=== PATIENT | male | born 1985 | race Caucasian/White ===

== ENCOUNTER 2017-05-14 00:06 | Emergency (ER) | payer BC, OTHER ==
[2017-05-14] MEDS ORDERED: Ibuprofen 800 MG Tab PO ONE (00:39)
[2017-05-14] MEDS ORDERED: Lidocaine 1% 20 ML MDV INJECT ONE (00:39)
[2017-05-14] MEDS ORDERED: Bacitracin Oint 1 GM U/D Packet TOP ONE (00:45)
--- NOTE | 2017-05-14 00:46 | EDM.PDOC ---
ED HPI GENERAL MEDICAL PROBLEM - General Chief Complaint: Upper Extremity Injury/Pain Stated Complaint: INJURY TO RIGHT HAND Time Seen by Provider: 05/14/17 00:36 Source of Information: Reports: Patient, Other (Friend) History Limitations: Reports: No Limitations - History of Present Illness INITIAL COMMENTS - FREE TEXT/NARRATIVE: HISTORY AND PHYSICAL: History of present illness: [32-year-old male status post laceration right long finger prior to arrival. Patient was drinking he went to punch a punching bag in a bar when he hit the wooden base that was mounted on causing her to have centimeter laceration to his right long finger is able to use and range of motion finger normally and states his sensation is normal distally. No other complaints.] Review of systems: As per history of present illness and below otherwise all systems reviewed and negative. Past medical history: As per history of present illness and as reviewed below otherwise noncontributory. Surgical history: As per history of present illness and as reviewed below otherwise noncontributory. Social history: No reported history of drug or alcohol abuse. Family history: As per history of present illness and as reviewed below otherwise noncontributory. Physical exam: Patient mildly intoxicated but alert communicative and cooperative. 2 and half centimeter laceration dorsum right long finger. Normal strength and range of motion in flexion and extension. No evidence of tendon involvement. No gross contamination. Bleeding controlled. HEENT: Normocephalic, atraumatic, pupils normal and symmetrical, supple neck, no meningismus, normal color Lungs: Normal and symmetrical chest wall excursion bilateral with no tachypnea or increased work of breathing, grossly normal chest exam Heart: No tachycardia in triage Abdomen: Normal-appearing, nondistended, no visible mass or asymmetry Pelvis: Normal-appearing Genitourinary: Deferred Rectal exam: Deferred Extremities: Atraumatic, normal use and range of motion, no visible evidence of gross neurovascular compromise Neuro: Awake, alert, oriented. Normal and appropriate mental status. Cranial nerves grossly unremarkable. Motor function normal. Nonfocal neurologic exam. Diagnostics: [] Therapeutics: [Laceration repair by ER Qian Patient's wound anesthetized with 1% lidocaine and irrigated extensively with tap water.] 6 interrupted 5-0 Prolene sutures placed urine Qian with good approximation and hemostasis. Patient tolerated well no palpitations Impression: [] Plan: [Status post unconjugated laceration no clinical evidence of fracture or tendon injury. Wound repair performed by me. No further workup or treatment indicated patient agrees with outpatient follow-up and strict return precautions given] Definitive disposition and diagnosis as appropriate pending reevaluation and review of above. - Related Data Allergies Allergy/AdvReac Type Severity Reaction Status Date / Time No Known Allergies Allergy Verified 05/19/17 20:18 Home Meds: Home Meds Hydrocodone/Acetaminophen [Hydrocodon-Acetaminoph 7.5-325] 1 tab PO Q8HR [History] Sulfamethoxazole/Trimethoprim [Bactrim Ds Tablet] 1 each PO BID 05/19/17 [ History] Review of Systems - Review of Systems Review Of Systems: See Below (History of present illness) ED EXAM, GENERAL - Physical Exam Exam: See Below (History of present illness) Course - Vital Signs Last Recorded V/S: Last Vital Signs Temp 36.6 C 05/14/17 00:19 Pulse 92 05/14/17 00:19 Resp 20 05/14/17 00:19 BP 125/87 05/14/17 00:19 Pulse Ox 95 05/14/17 00:19 - Orders/Labs/Meds Meds: Medications Discontinued Medications Generic Name Dose Route Start Last Admin Trade Name Freq PRN Reason Stop Dose Admin Bacitracin 1 dose 05/14/17 00:45 Bacitracin Oint 1 Gm TOP 05/14/17 00:46 ONETIME ONE Ibuprofen 800 mg 05/14/17 00:39 Motrin PO 05/14/17 00:40 ONETIME ONE Lidocaine HCl 20 ml 05/14/17 00:39 Xylocaine 1% INJECT 05/14/17 00:40 ONETIME ONE Departure - Departure Time of Disposition: 00:20 Disposition: Home, Self-Care 01 Condition: Good Clinical Impression: Laceration of right hand - Discharge Information Referrals: PCP,None [Primary Care Provider] - Forms: ED Department Discharge Additional Instructions: Your laceration has been repaired with sutures today. Follow-up in your with your doctor in 2 days for a wound check and in 10 days for suture removal. You can return to the emergency department for suture removal in 10 days and you will not be charged for another visit. It is considered part of your care to remove the sutures. It on any signs of fracture or tendon rupture. Use ice and take ibuprofen every 6 hours as needed for pain
[2017-05-14 00:47] VITALS: BP 125/87
== END 2017-05-14 00:48 | disposition home or self-care (01) ==
LOC: MW.ED 00:06
DX: S61.212A Laceration without foreign body of right middle finger without damage to nail, initial encounter (principal); W22.8XXA Striking against or struck by other objects, initial encounter; Y92.89 Other specified places as the place of occurrence of the external cause
CPT/HCPCS: 12002; 99282; 99283

== ENCOUNTER 2017-05-18 19:49 | Emergency (ER) | payer BC ==
[2017-05-18] MEDS ORDERED: Acetaminophen/HYDROcodone 325-7.5 MG Tab PO ONE (20:17)
--- NOTE | 2017-05-18 20:18 | EDM.PDOC ---
ED HPI GENERAL MEDICAL PROBLEM - General Chief Complaint: Skin Complaint Stated Complaint: RIGHT HAND PAIN Time Seen by Provider: 05/18/17 19:51 - History of Present Illness INITIAL COMMENTS - FREE TEXT/NARRATIVE: HISTORY AND PHYSICAL: History of present illness: The patient is a 32-year-old male who presents with persistent pain swelling and possible infection to his right hand after sustaining an injury 4 days ago. According to the patient he had blunt trauma to the hand which he says occurred when some engine parts fell onto his hand. The patient was seen here in the emergency department on May 14 and the chart has been reviewed by me. On that visit the triage note states that the injury occurred upon touching a punching bag MR and the patient refused treatment of the laceration repair and refused all interventions and signed AMA. The patient recalls that he did drink that evening but didn't specifically relate these events to me. The patient says that since the injury he has been cleaning the wound with diluted peroxide and wound has been healing but the surrounding area of the soft tissue is erythematous and swollen and there is pain with moving of the index finger. He has no streaking up his arm and he has no wrist forearm elbow or upper arm pain or swelling. He has no systemic complaints of fever chills chest pain or shortness of breath. He's been eating and drinking normally. Review of systems: As per history of present illness and below otherwise all systems reviewed and negative. Past medical history: As per history of present illness and as reviewed below otherwise noncontributory. Surgical history: As per history of present illness and as reviewed below otherwise noncontributory. Social history: No reported history of drug or alcohol abuse. Family history: As per history of present illness and as reviewed below otherwise noncontributory. Physical exam: Gen.: Well-developed well-nourished man who is nontoxic and vital signs of been reviewed by me. HEENT: Atraumatic, normocephalic, negative for conjunctival pallor or scleral icterus, mucous membranes moist, throat clear, neck supple, nontender, trachea midline. Lungs: Clear to auscultation, breath sounds equal bilaterally, chest nontender. Heart: S1S2, regular rate and rhythm no overt murmurs Abdomen: Soft, nondistended, nontender. NABS. Pelvis: Deferred Skin: Normal turgor no evidence of any overt rashes or lesions Genitourinary: Deferred. Rectal: Deferred. Extremities: Atraumatic with full range of motion of all extremities with the exception of the right hand. On the dorsal aspect of the right hand near the second MCP there is a 3 cm partially healed open wound without any drainage fluctuance or crepitus. The edges are jagged he an irregular and the surrounding tissue is somewhat macerated. The surrounding soft tissue is swollen but is not warm. The erythema in this area is ill-defined and there is no streaking up the hand or arm. There are no proximal lymph nodes appreciated. There is no palpable bony deformities but there is diffuse tenderness at the first metacarpal and MCP area. On the palmar surface there is some soft tissue swelling in the corresponding area but there are no open wounds appreciated. The patient is difficulty with flexion and extension at the index finger due to discomfort but can tolerate passive range of motion. All other extremities are without injuries and the legs are, negative for cords or calf pain. Neurovascular unremarkable. Neuro: Awake, alert, oriented. Cranial nerves II through XII unremarkable. Cerebellum unremarkable. Motor and sensory unremarkable throughout. Exam nonfocal. Diagnostics: X-ray right hand Therapeutics: Whitewright, vancomycin, Toradol sling 2043: I discussed the x-ray results with the patient and family at bedside and I also discussed this case with Dr. Meraz, the hand surgeon at [facility]. We will go ahead and give a dose of vancomycin here and Bactrim for home. He recommended that the patient come back within 24 hours to be rechecked in the ER and if the symptoms are improving he can continue the antibiotics and follow-up with when she returns next week. If the symptoms are not improving and the clinical picture is worsening then the patient would need to be transferred to [facility] and undergo evaluation there for possible open washout. The patient and family at bedside are aware of this and state that they will return in 24 hours. Nursing who will be here tomorrow have also examined the wound and will be able to evaluate its improvement or not tomorrow. I've also given the patient a sling and will give him pain medication for home. Impression: Right hand infection/cellulitis Status post blunt trauma subacute, With early extensor tenosynovitis Definitive disposition and diagnosis as appropriate pending reevaluation and review of above. Right 2-Index finger Pain Score (Numeric/FACES): 3 - Related Data Allergies Allergy/AdvReac Type Severity Reaction Status Date / Time No Known Allergies Allergy Verified 05/18/17 20:04 Home Meds: Home Meds . [No Known Home Meds] 05/14/17 [History] Past Medical History - Past Health History Medical/Surgical History: Denies Medical/Surgical History - Past Surgical History HEENT Surgical History: Reports: Tonsillectomy Social & Family History - Family History Family Medical History: Noncontributory - Tobacco Use Smoking Status *Q: Current Every Day Smoker Years of Tobacco use: 14 Packs/Tins Daily: 1 - Caffeine Use Caffeine Use: Reports: Coffee Caffeine Use Comment: 3 daily - Alcohol Use Days Per Week of Alcohol Use: 7 Number of Drinks Per Day: 2 Total Drinks Per Week: 14 - Recreational Drug Use Recreational Drug Use: Yes Drug Use in Last 12 Months: No Recreational Drug Use Frequency: Not Used In Over 1 Year ED ROS GENERAL - Review of Systems Review Of Systems: ROS reveals no pertinent complaints other than HPI. ED EXAM, SKIN/RASH Exam: See Below (See dictation) Course - Vital Signs Last Recorded V/S: Last Vital Signs Temp 36.8 C 05/18/17 20:04 Pulse 90 05/18/17 20:04 Resp 16 05/18/17 20:04 BP 136/77 05/18/17 20:04 Pulse Ox 94 L 05/18/17 20:04 - Orders/Labs/Meds Orders: Active Orders 24 hr Category Date Time Status Communication Order [RC] STAT Care 05/18/17 20:52 Ordered Hand Comp Min 3V Rt [CR] Stat Exams 05/18/17 20:17 Taken Bacitracin [Bacitracin Oint 1 GM] Med 05/18/17 20:52 Once 1 dose TOP ONETIME ONE Ketorolac [Toradol] Med 05/18/17 20:56 Once 30 mg IVPUSH ONETIME ONE Sodium Chloride 0.9% [Saline Flush] Med 05/18/17 20:56 Ordered 10 ml FLUSH ASDIRECTED PRN Sodium Chloride 0.9% [Saline Flush] Med 05/18/17 20:56 Ordered 2.5 ml FLUSH ASDIRECTED PRN Vancomycin 1,000 mg Med 05/18/17 20:54 Ordered Dextrose 5% in Water 250 ml IV ONETIME DME for Discharge [COMM] Stat Oth 05/18/17 20:52 Ordered Saline Lock Insert [OM.PC] Stat Oth 05/18/17 20:56 Ordered Medication Orders Bacitracin (Bacitracin Oint 1 Gm) 1 dose TOP ONETIME ONE Stop: 05/18/17 20:53 Vancomycin HCl 1,000 mg/ (Dextrose/Water) 250 mls @ 167 mls/hr IV ONETIME ONE Stop: 05/18/17 22:23 Ketorolac Tromethamine (Toradol) 30 mg IVPUSH ONETIME ONE Stop: 05/18/17 20:57 Sodium Chloride (Saline Flush) 10 ml FLUSH ASDIRECTED PRN PRN Reason: Keep Vein Open Sodium Chloride (Saline Flush) 2.5 ml FLUSH ASDIRECTED PRN PRN Reason: Keep Vein Open Meds: Medications Generic Name Dose Route Start Last Admin Trade Name Freq PRN Reason Stop Dose Admin Bacitracin 1 dose 05/18/17 20:52 Bacitracin Oint 1 Gm TOP 05/18/17 20:53 ONETIME ONE Vancomycin HCl 1,000 mg/ 250 mls @ 167 mls/hr 05/18/17 20:54 Dextrose/Water IV 05/18/17 22:23 ONETIME ONE Ketorolac Tromethamine 30 mg 05/18/17 20:56 Toradol IVPUSH 05/18/17 20:57 ONETIME ONE Sodium Chloride 10 ml 05/18/17 20:56 Saline Flush FLUSH ASDIRECTED PRN Keep Vein Open Sodium Chloride 2.5 ml 05/18/17 20:56 Saline Flush FLUSH ASDIRECTED PRN Keep Vein Open Discontinued Medications Generic Name Dose Route Start Last Admin Trade Name Freq PRN Reason Stop Dose Admin Hydrocodone Bitart/Acetaminophen 1 tab 05/18/17 20:17 05/18/17 20:35 Whitewright 325-7.5 Mg PO 05/18/17 20:18 1 tab ONETIME ONE Administration Departure - Departure Time of Disposition: 20:59 Disposition: Home, Self-Care 01 Condition: Good Clinical Impression: Tenosynovitis of finger Cellulitis Qualifiers: Site of cellulitis: extremity Site of cellulitis of extremity: finger Laterality: right Qualified Code(s): L03.011 - Cellulitis of right finger - Discharge Information Forms: ED Department Discharge Additional Instructions: The following information is given to patients seen in the emergency department who are being discharged to home. This information is to outline your options for follow-up care. We provide all patients seen in our emergency department with a follow-up referral. The need for follow-up, as well as the timing and circumstances, are variable depending upon the specifics of your emergency department visit. If you don't have a primary care physician on staff, we will provide you with a referral. We always advise you to contact your personal physician following an emergency department visit to inform them of the circumstance of the visit and for follow-up with them and/or the need for any referrals to a consulting specialist. The emergency department will also refer you to a specialist when appropriate. This referral assures that you have the opportunity for followup care with a specialist. All of these measure are taken in an effort to provide you with optimal care, which includes your followup. Under all circumstances we always encourage you to contact your private physician who remains a resource for coordinating your care. When calling for followup care, please make the office aware that this follow-up is from your recent emergency room visit. If for any reason you are refused follow-up, please contact the [facility] emergency department at and ask to speak to the emergency department charge nurse. [facility] Specialty clinic-Plastic Surgery and Hand Surgery Professional [address] [id number] Please return to the ER in 24 hours, after 7 PM, to be reevaluated for improvement with the antibiotics. Please take the antibiotics as directed until they are finished. Use [id number] Motrin and the Whitewright you have been prescribed for pain. Please keep the area of the wound clean and dry and do not use peroxide or alcohol products. Elevate using the sling and return sooner to the ER for any new symptoms or problems. Please call and schedule a follow-up appointment with our hand specialist next week when she returns. - My Orders Last 24 Hours: My Active Orders 05/18/17 20:17 Hand Comp Min 3V Rt [CR] Stat 05/18/17 20:52 Communication Order [RC] STAT Bacitracin [Bacitracin Oint 1 GM] 1 dose TOP ONETIME ONE DME for Discharge [COMM] Stat 05/18/17 20:54 Vancomycin 1,000 mg Dextrose 5% in Water 250 ml IV ONETIME 05/18/17 20:56 Ketorolac [Toradol] 30 mg IVPUSH ONETIME ONE Sodium Chloride 0.9% [Saline Flush] 10 ml FLUSH ASDIRECTED PRN Sodium Chloride 0.9% [Saline Flush] 2.5 ml FLUSH ASDIRECTED PRN Saline Lock Insert [OM.PC] Stat - Assessment/Plan Last 24 Hours: My Active Orders 05/18/17 20:17 Hand Comp Min 3V Rt [CR] Stat 05/18/17 20:52 Communication Order [RC] STAT Bacitracin [Bacitracin Oint 1 GM] 1 dose TOP ONETIME ONE DME for Discharge [COMM] Stat 05/18/17 20:54 Vancomycin 1,000 mg Dextrose 5% in Water 250 ml IV ONETIME 05/18/17 20:56 Ketorolac [Toradol] 30 mg IVPUSH ONETIME ONE Sodium Chloride 0.9% [Saline Flush] 10 ml FLUSH ASDIRECTED PRN Sodium Chloride 0.9% [Saline Flush] 2.5 ml FLUSH ASDIRECTED PRN Saline Lock Insert [OM.PC] Stat
[2017-05-18] MEDS ORDERED: Bacitracin Oint 1 GM U/D Packet TOP ONE (20:52)
[2017-05-18] MEDS ORDERED: Ketorolac 30 MG/ML SDV IVPUSH ONE (20:56)
[2017-05-18] MEDS ORDERED: Sodium Chloride 0.9% 2.5 ML Syringe FLUSH PRN (20:56)
[2017-05-18] MEDS ORDERED: Sodium Chloride 0.9% 10 ML Syringe FLUSH PRN (20:56)
[2017-05-18] MEDS ORDERED: Sodium Chloride 0.9% 250 ML ONE (21:02)
[2017-05-18] MEDS: Vancomycin 1 GM AdvVial ONE ×2 (21:07→21:13)
[2017-05-18 22:58] VITALS: BP 130/70
--- NOTE | 2017-05-19 13:32 | CR ---
EXAM DATE: 05/18/17 PATIENT'S AGE: 32 Patient: SCIENTOLOGY ISAAC Facility: [place], [place] Site . Site : 1985 Study: XRay Extremity hand [id number]/10/2017 8:32:52 PM Ordering Physician: Nj Maravilla Final Report: INDICATION: subacute trauma, crushing injury TECHNIQUE: Three views of the right hand. COMPARISON: None FINDINGS: Bones: No fractures or bone lesions. Joint spaces: Unremarkable. Soft tissues: Unremarkable. IMPRESSION: No acute bony abnormality. Dictated by Galen Loaiza MD @ 05/18/2017 8:36:54 PM Dictated by: Galen Loaiza MD @ 05/18/2017 20:37:02 (Electronic Signature) Report Signed by Proxy. [facility]ITALArthur
== END 2017-05-18 22:40 | disposition home or self-care (01) ==
LOC: MW.ED 19:49
DX: L03.011 Cellulitis of right finger (principal); M65.841 Other synovitis and tenosynovitis, right hand; F17.210 Nicotine dependence, cigarettes, uncomplicated
CPT/HCPCS: 73130; 96361; 96374; 99284; A9270; J1885; J3370; J7060; 99283

== ENCOUNTER 2017-05-19 19:27 | Emergency (ER) | payer BC ==
--- NOTE | 2017-05-19 20:39 | EDM.PDOC ---
ED HPI GENERAL MEDICAL PROBLEM - General Chief Complaint: Wound Recheck Stated Complaint: PAIN RT HAND Time Seen by Provider: 05/19/17 20:05 Source of Information: Reports: Patient History Limitations: Reports: No Limitations - History of Present Illness INITIAL COMMENTS - FREE TEXT/NARRATIVE: HISTORY AND PHYSICAL: History of present illness: [Patient comes to the emergency room to follow-up on right hand cellulitis. Completed 1 g of IV vancomycin last night and took both doses of Bactrim DS today. He does not feel as though he is improved at all and in fact feels that he has worsened. States that his hand is more swollen and he is having more diffuse redness across the dorsum of his hand. Continues to be painful both with movement and at rest. He denies fever, chills, chest pain, shortness of breath, nausea, vomiting. Denies streaking up his hand or into his arm. He has had no joint pain or swelling. See previous ER notes for more information since the incident occurred on May 14, 2017 at which time he states he dropped car parts on his hand. is at the bedside. Review of systems: As per history of present illness and below otherwise all systems reviewed and negative. Past medical history: As per history of present illness and as reviewed below otherwise noncontributory. Surgical history: As per history of present illness and as reviewed below otherwise noncontributory. Social history: No reported history of drug or alcohol abuse. Family history: As per history of present illness and as reviewed below otherwise noncontributory. Physical exam: Gen.: Well-developed well-nourished male in no acute distress. Vital signs are reviewed by me. HEENT: Atraumatic, normocephalic. mucous membranes moist. Lungs: Clear to auscultation. Heart: S1S2, regular rate and rhythm. Extremities: Swelling and redness over the dorsum of his right metacarpal and MCP areas. Swelling extends across the dorsum of his hand. Erythema does not extend past the marker lines drawn last evening but it appears to continue to be erythematous. He has pain with range of motion of his fingers. Less pain with passive range of motion. No decreased sensation or mobility other than due to pain. No pain or swelling to his wrist elbow or shoulder. Neuro: Awake, alert, oriented. Motor and sensory unremarkable throughout. Exam nonfocal. Diagnostics: [CBC, CMP] Impression: [Right hand infection, cellulitis] Plan: [Case is discussed with Dr. Leiva, hand specialist at [facility]. He would like to see patient for open wound washout yet this evening. Patient will driven by his to [facility]. He is instructed to be nothing by mouth until he is evaluated by Dr. Leiva. Patient and are in agreement with today's plan.] Definitive disposition and diagnosis as appropriate pending reevaluation and review of above. right arm Pain Score (Numeric/FACES): 9 - Related Data Allergies Allergy/AdvReac Type Severity Reaction Status Date / Time No Known Allergies Allergy Verified 05/19/17 20:18 Home Meds: Home Meds Hydrocodone/Acetaminophen [Hydrocodon-Acetaminoph 7.5-325] 1 tab PO Q8HR [History] Sulfamethoxazole/Trimethoprim [Bactrim Ds Tablet] 1 each PO BID 05/19/17 [ History] Past Medical History - Past Health History Medical/Surgical History: Denies Medical/Surgical History HEENT History: Reports: None Cardiovascular History: Reports: None Respiratory History: Reports: None Gastrointestinal History: Reports: None Genitourinary History: Reports: None Musculoskeletal History: Reports: None Neurological History: Reports: None Psychiatric History: Reports: None Endocrine/Metabolic History: Reports: None Hematologic History: Reports: None Immunologic History: Reports: None Oncologic (Cancer) History: Reports: None Dermatologic History: Reports: Cellulitis - Infectious Disease History Infectious Disease History: Reports: Chicken Pox - Past Surgical History HEENT Surgical History: Reports: Tonsillectomy Social & Family History - Family History Family Medical History: Noncontributory - Tobacco Use Smoking Status *Q: Current Every Day Smoker Years of Tobacco use: 19 Packs/Tins Daily: 0.5 - Caffeine Use Caffeine Use: Reports: Coffee, Energy Drinks Caffeine Use Comment: 3 daily - Alcohol Use Days Per Week of Alcohol Use: 7 Number of Drinks Per Day: 2 Total Drinks Per Week: 14 - Recreational Drug Use Recreational Drug Use: No Drug Use in Last 12 Months: No Recreational Drug Use Frequency: Not Used In Over 1 Year ED ROS GENERAL - Review of Systems Review Of Systems: ROS reveals no pertinent complaints other than HPI. ED EXAM, GENERAL - Physical Exam Exam: See Below Course - Vital Signs Last Recorded V/S: Last Vital Signs Temp 98.7 F 05/19/17 20:40 Pulse 83 05/19/17 20:40 Resp 18 05/19/17 20:40 BP 125/81 05/19/17 20:40 Pulse Ox 95 05/19/17 20:40 - Orders/Labs/Meds Orders: Active Orders 24 hr Category Date Time Status COMPREHENSIVE METABOLIC PN,CMP [CHEM] Stat Lab 05/19/17 20:15 Received Labs: Laboratory Tests 05/19/17 Range/Units 20:15 WBC 9.78 (4.0-11.0) K/uL RBC 4.75 (4.50-5.90) M/uL Hgb 15.0 (13.0-17.0) g/dL Hct 43.4 (38.0-50.0) % MCV 91.4 (80.0-98.0) fL MCH 31.6 (27.0-32.0) pg MCHC 34.6 (31.0-37.0) g/dL RDW Std Deviation 40.4 (28.0-62.0) fl RDW Coeff of Giovana 12 (11.0-15.0) % Plt Count 129 L (150-400) K/uL MPV 11.70 (7.40-12.00) fL Neut % (Auto) 65.3 (48.0-80.0) % Lymph % (Auto) 25.3 (16.0-40.0) % [place] % (Auto) 7.1 (0.0-15.0) % Eos % (Auto) 2.0 (0.0-7.0) % Baso % (Auto) 0.3 (0.0-1.5) % Neut # (Auto) 6.4 H (1.4-5.7) K/uL Lymph # (Auto) 2.5 H (0.6-2.4) K/uL [place] # (Auto) 0.7 (0.0-0.8) K/uL Eos # (Auto) 0.2 (0.0-0.7) K/uL Baso # (Auto) 0.0 (0.0-0.1) K/uL Nucleated RBC % 0.0 /100WBC Nucleated RBCs # 0 K/uL Departure - Departure Time of Disposition: 20:55 Disposition: DC/Tfer to Acute Hospital 02 Condition: Good Clinical Impression: Cellulitis of right hand - Discharge Information Referrals: PCP,None [Primary Care Provider] - Forms: ED Department Discharge Additional Instructions: The following information is given to patients seen in the emergency department who are being discharged to home. This information is to outline your options for follow-up care. We provide all patients seen in our emergency department with a follow-up referral. The need for follow-up, as well as the timing and circumstances, are variable depending upon the specifics of your emergency department visit. If you don't have a primary care physician on staff, we will provide you with a referral. We always advise you to contact your personal physician following an emergency department visit to inform them of the circumstance of the visit and for follow-up with them and/or the need for any referrals to a consulting specialist. The emergency department will also refer you to a specialist when appropriate. This referral assures that you have the opportunity for follow-up care with a specialist. All of these measure are taken in an effort to provide you with optimal care, which includes your follow-up. Under all circumstances we always encourage you to contact your private physician who remains a resource for coordinating your care. When calling for follow-up care, please make the office aware that this follow-up is from your recent emergency room visit. If for any reason you are refused follow-up, please contact the [facility] emergency department at and asked to speak to the emergency department charge nurse. [facility] [address] [place] [address] Report to the emergency room or the admissions desk at [facility] in [place]. Do not eat or drink anything on the way. You will be going for surgery to your hand upon arrival there. Dr. Leiva will be taking care of you. - My Orders Last 24 Hours: My Active Orders 05/19/17 20:15 COMPREHENSIVE METABOLIC PN,CMP [CHEM] Stat - Assessment/Plan Last 24 Hours: My Active Orders 05/19/17 20:15 COMPREHENSIVE METABOLIC PN,CMP [CHEM] Stat
[2017-05-19 20:41] VITALS: BP 125/81
[2017-05-19 20:45] LABS: CHLORIDE,CL 109 mmol/L (98-110); SODIUM,NA 141 mmol/L (136-146)
== END 2017-05-19 21:00 ==
LOC: MW.ED 19:27
DX: L03.113 Cellulitis of right upper limb (principal); F17.210 Nicotine dependence, cigarettes, uncomplicated; Z98.890 Other specified postprocedural states
CPT/HCPCS: 36415; 80053; 85025; 99283; 99284

== ENCOUNTER 2018-11-11 02:52 | Emergency (ER) | payer BC ==
[2018-11-11] MEDS ORDERED: Diphtheria,Pertussis(Acell),Tetanus Vaccine 0.5 ML Syringe IM ONE (03:10)
--- NOTE | 2018-11-11 03:15 | EDM.PDOC ---
ED HPI GENERAL MEDICAL PROBLEM - General Chief Complaint: Upper Extremity Injury/Pain Stated Complaint: BROKEN RIGHT HAND Time Seen by Provider: 11/11/18 03:13 Source of Information: Reports: Patient - History of Present Illness INITIAL COMMENTS - FREE TEXT/NARRATIVE: HISTORY AND PHYSICAL: History of present illness: [Patient presents with right hand pain 5 out of 10 nonradiating after puncturing through a plate glass window Multiple abrasions minor superficial on the skin entire limb is neurovascularly intact moderate swelling of the hand unaffected above the wrist, tendon function intact flexor and extensor ] Review of systems: As per history of present illness and below otherwise all systems reviewed and negative. Past medical history: As per history of present illness and as reviewed below otherwise noncontributory. Surgical history: As per history of present illness and as reviewed below otherwise noncontributory. Social history: No reported history of drug or alcohol abuse. Family history: As per history of present illness and as reviewed below otherwise noncontributory. Physical exam: HEENT: Atraumatic, normocephalic, pupils reactive, negative for conjunctival pallor or scleral icterus, mucous membranes moist, throat clear, neck supple, nontender, trachea midline. Lungs: Clear to auscultation, breath sounds equal bilaterally, chest nontender. Heart: S1S2, regular, negative for clicks, rubs, or JVD. Abdomen: Soft, nondistended, nontender. Negative for masses or hepatosplenomegaly. Negative for costovertebral tenderness. Pelvis: Stable nontender. Genitourinary: Deferred. Rectal: Deferred. Extremities: Atraumatic, negative for cords or calf pain. Neurovascular unremarkable. right hand see history of present illness Neuro: Awake, alert, oriented. Cranial nerves II through XII unremarkable. Cerebellum unremarkable. Motor and sensory unremarkable throughout. Exam nonfocal. Diagnostics: [Hand 3 views ] Therapeutics: [Tetanus status updated A few small shards were removed from his knuckles of the tracer Standard wound care 1 g Rocephin IM Cock-up splint and fourth digit splint ] Impression: Multiple small abrasions on the right hand superficial no sutures required Right hand injury ] Definitive disposition and diagnosis as appropriate pending reevaluation and review of above. Right Hand Pain Score (Numeric/FACES): 2 - Related Data Allergies Allergy/AdvReac Type Severity Reaction Status Date / Time guaifenesin [From Robitussin] Allergy Airway Verified 11/11/18 03:08 Tightness Home Meds: Home Meds . [No Known Home Meds] 11/11/18 [History] Past Medical History - Past Health History Medical/Surgical History: Denies Medical/Surgical History HEENT History: Reports: None Cardiovascular History: Reports: None Respiratory History: Reports: None Gastrointestinal History: Reports: None Genitourinary History: Reports: None Musculoskeletal History: Reports: None Neurological History: Reports: None Psychiatric History: Reports: None Endocrine/Metabolic History: Reports: None Hematologic History: Reports: None Immunologic History: Reports: None Oncologic (Cancer) History: Reports: None Dermatologic History: Reports: Cellulitis - Infectious Disease History Infectious Disease History: Reports: Chicken Pox - Past Surgical History HEENT Surgical History: Reports: Tonsillectomy Musculoskeletal Surgical History: Reports: Other (See Below) Other Musculoskeletal Surgeries/Procedures:: Pt had infection in R hand that had to be packed Social & Family History - Family History Family Medical History: Noncontributory - Tobacco Use Smoking Status *Q: Current Every Day Smoker Years of Tobacco use: 14 Packs/Tins Daily: 1 - Caffeine Use Caffeine Use: Reports: Coffee, Energy Drinks Caffeine Use Comment: 3 daily - Recreational Drug Use Recreational Drug Use: No Review of Systems - Review of Systems Review Of Systems: See Below ED EXAM, GENERAL - Physical Exam Exam: See Below Course - Vital Signs Last Recorded V/S: Last Vital Signs Temp 97.3 F 11/11/18 03:05 Pulse 111 H 11/11/18 03:05 Resp 20 11/11/18 03:05 BP 143/84 H 11/11/18 03:05 Pulse Ox 96 11/11/18 03:05 - Orders/Labs/Meds Orders: Active Orders 24 hr Category Date Time Status Vaccines to be Administered [RC] PER UNIT ROUTINE Care 11/11/18 03:11 Active Hand Comp Min 3V Rt [CR] Stat Exams 11/11/18 03:09 Taken Meds: Medications Discontinued Medications Generic Name Dose Route Start Last Admin Trade Name Freq PRN Reason Stop Dose Admin Bacitracin 1 dose 11/11/18 03:51 Bacitracin Oint 1 Gm TOP 11/11/18 03:52 ONETIME ONE Ceftriaxone Sodium 1 gm 11/11/18 03:24 11/11/18 03:33 Rocephin IM 11/11/18 03:25 1 gm ONETIME ONE Administration Diphtheria/Tetanus/Acell Pertussis 0.5 ml 11/11/18 03:10 11/11/18 03:19 Adacel IM 11/11/18 03:11 0.5 ml .ONCE ONE Administration Lidocaine HCl Confirm 11/11/18 03:27 11/11/18 03:37 Xylocaine-Mpf 1% Administered 11/11/18 03:28 Not Given Dose 2 mls @ as directed .ROUTE .STK-MED ONE Lidocaine HCl 2.1 ml 11/11/18 03:37 11/11/18 03:38 Xylocaine 1% INJECT 11/11/18 03:38 2.1 ml ONETIME ONE Administration Departure - Departure Time of Disposition: 03:55 Disposition: Home, Self-Care 01 Condition: Good Clinical Impression: Injury of right hand - Discharge Information Referrals: PCP,None [Primary Care Provider] - Forms: ED Department Discharge Additional Instructions: Medication as prescribed Return if symptoms persist or worsen Follow-up with orthopedist, call phone number below to schedule appropriate follow-up [facility] [address], [address] [place] [address] my orthopedic The following information is given to patients seen in the emergency department who are being discharged to home. This information is to outline your options for follow-up care. We provide all patients seen in our emergency department with a follow-up referral. The need for follow-up, as well as the timing and circumstances, are variable depending upon the specifics of your emergency department visit. If you don't have a primary care physician on staff, we will provide you with a referral. We always advise you to contact your personal physician following an emergency department visit to inform them of the circumstance of the visit and for follow-up with them and/or the need for any referrals to a consulting specialist. The emergency department will also refer you to a specialist when appropriate. This referral assures that you have the opportunity for follow-up care with a specialist. All of these measure are taken in an effort to provide you with optimal care, which includes your follow-up. Under all circumstances we always encourage you to contact your private physician who remains a resource for coordinating your care. When calling for follow-up care, please make the office aware that this follow-up is from your recent emergency room visit. If for any reason you are refused follow-up, please contact the [facility] emergency department at and asked to speak to the emergency department charge nurse. - My Orders Last 24 Hours: My Active Orders 11/11/18 03:09 Hand Comp Min 3V Rt [CR] Stat 11/11/18 03:11 Vaccines to be Administered [RC] PER UNIT ROUTINE - Assessment/Plan Last 24 Hours: My Active Orders 11/11/18 03:09 Hand Comp Min 3V Rt [CR] Stat 11/11/18 03:11 Vaccines to be Administered [RC] PER UNIT ROUTINE
[2018-11-11] MEDS ORDERED: cefTRIAXone 1 GM Vial IM ONE (03:24)
[2018-11-11] MEDS ORDERED: Lidocaine 1% 2 ML ONE (03:27)
[2018-11-11] MEDS ORDERED: Lidocaine 1% 20 ML MDV INJECT ONE (03:37)
[2018-11-11] MEDS ORDERED: Bacitracin Oint 1 GM U/D Packet TOP ONE (03:51)
[2018-11-11 04:06] VITALS: BP 120/74
--- NOTE | 2018-11-11 04:10 | CR ---
Indication: Injury. Pain Technique: 3 views of the right hand. Comparison: None available Findings: Bones: Alignment is normal. No fractures or bone lesions. Joint spaces: Unremarkable. Soft tissues: Mild dorsal soft tissue swelling. Impression: No acute fracture or dislocation Dictated by Maycol Vasquez MD @ 11/11/2018 4:09:01 AM Dictated by: Maycol Vasquez MD @ 11/11/2018 04:09:06 (Electronically Signed)
== END 2018-11-11 04:16 | disposition home or self-care (01) ==
LOC: MW.ED 02:52
DX: S60.511A Abrasion of right hand, initial encounter (principal); F17.210 Nicotine dependence, cigarettes, uncomplicated; Z88.8 Allergy status to other drugs, medicaments and biological substances; Z23 Encounter for immunization; W25.XXXA Contact with sharp glass, initial encounter
CPT/HCPCS: 73130; 90471; 90715; 96372; 99283; J0696

== ENCOUNTER 2019-11-30 18:15 | Emergency (ER) | payer SELFPAY ==
--- NOTE | 2019-11-30 20:07 | EDM.PDOC ---
ED HPI GENERAL MEDICAL PROBLEM - General Chief Complaint: Chest Pain Stated Complaint: CHEST PAIN,TROUBLE BREATHING Time Seen by Provider: 11/30/19 18:45 Source of Information: Reports: Patient History Limitations: Reports: No Limitations - History of Present Illness INITIAL COMMENTS - FREE TEXT/NARRATIVE: HISTORY AND PHYSICAL: History of present illness: Patient is a 34-year-old male presents to the ED With complaint of chest pain and tingling. Patient states that an hour prior to arrival to the ED he was sitting on the cough when he started having chest pain, tingling in his feet and hands, and shortness of breath. He states he was light headed as he walked out to the car. Patient states he is no longer having chest pain in the ED. He states he feels like he has to take a deep breath every now and then. He states he has numbness and tingling that moves from one foot to the other. He denies fevers, chills, cough, nausea, vomiting, abdominal pain, weakness. Patient denies significant past medical history. Review of systems: As per history of present illness and below otherwise all systems reviewed and negative. Past medical history: As per history of present illness and as reviewed below otherwise noncontributory. Surgical history: As per history of present illness and as reviewed below otherwise noncontributory. Social history: No reported history of drug or alcohol abuse. Family history: As per history of present illness and as reviewed below otherwise noncontributory. Physical exam: General: Patient sitting comfortably in no acute distress and nontoxic appearing HEENT: Atraumatic, normocephalic, pupils reactive, negative for conjunctival pallor or scleral icterus, mucous membranes moist, throat clear, neck supple, nontender, trachea midline. No meningeal signs. Lungs: Clear to auscultation, breath sounds equal bilaterally, chest nontender. Heart: S1S2, regular, negative for clicks, rubs, or overt murmur. Abdomen: Soft, nondistended, nontender. Negative for masses or hepatosplenomegaly. Negative for costovertebral tenderness. No rigidity, rebound , guarding. Pelvis: Stable nontender. Genitourinary: Deferred. Rectal: Deferred. Extremities: Atraumatic, negative for cords or calf pain. Neurovascular unremarkable. Neuro: Awake, alert, oriented. Cranial nerves II through XII unremarkable. Cerebellum unremarkable. Motor and sensory unremarkable throughout. Exam nonfocal Notes: Patient is refusing labs and discussed with him that this limits my evaluation. Imaging is unremarkable. Patient understands to follow up with primary care provider. Diagnostics: EKG, CXR, CT Head Patient is refusing labs Therapeutics: none Prescriptions: none Impression: atypical chest pain, paresthesias Plan: Follow up with primary care provider Return to ED as needed as discussed Definitive disposition and diagnosis as appropriate pending reevaluation and review of above. Chest Pain Pain Score (Numeric/FACES): 6 - Related Data Allergies Allergy/AdvReac Type Severity Reaction Status Date / Time guaifenesin [From Robitussin] Allergy Airway Verified 11/30/19 18:26 Tightness Home Meds: Home Meds . [No Known Home Meds] 11/11/18 [History] Past Medical History - Past Health History Medical/Surgical History: Denies Medical/Surgical History HEENT History: Reports: None Cardiovascular History: Reports: None Respiratory History: Reports: None Gastrointestinal History: Reports: None Genitourinary History: Reports: None Musculoskeletal History: Reports: None Neurological History: Reports: None Psychiatric History: Reports: Anxiety Endocrine/Metabolic History: Reports: None Hematologic History: Reports: None Immunologic History: Reports: None Oncologic (Cancer) History: Reports: None Dermatologic History: Reports: Cellulitis - Infectious Disease History Infectious Disease History: Reports: Chicken Pox - Past Surgical History HEENT Surgical History: Reports: Tonsillectomy Musculoskeletal Surgical History: Reports: Other (See Below) Other Musculoskeletal Surgeries/Procedures:: Pt had infection in R hand that had to be packed Social & Family History - Family History Family Medical History: Noncontributory - Tobacco Use Smoking Status *Q: Current Every Day Smoker Years of Tobacco use: 20 Packs/Tins Daily: 1 - Caffeine Use Caffeine Use: Reports: Coffee Caffeine Use Comment: 3 daily - Recreational Drug Use Recreational Drug Use: No ED ROS GENERAL - Review of Systems Review Of Systems: Comprehensive ROS is negative, except as noted in HPI. ED EXAM, GENERAL - Physical Exam Exam: See Below (see dictation) Course - Vital Signs Last Recorded V/S: Last Vital Signs Temp 97.7 F 11/30/19 21:05 Pulse 98 11/30/19 21:05 Resp 18 11/30/19 21:05 BP 131/80 11/30/19 21:05 Pulse Ox 97 11/30/19 21:05 - Orders/Labs/Meds Orders: Active Orders 24 hr Category Date Time Status EKG 12 Lead [EKG Documentation Completion] [RC] STAT Care 11/30/19 18:53 Active Departure - Departure Time of Disposition: 20:50 Disposition: Home, Self-Care 01 Condition: Good Clinical Impression: Atypical chest pain, Paresthesia Instructions: Chest Wall Pain, [id number], Paresthesia, [id number] Referrals: PCP,None [Primary Care Provider] - Forms: ED Department Discharge Additional Instructions: The following information is given to patients seen in the emergency department who are being discharged to home. This information is to outline your options for follow-up care. We provide all patients seen in our emergency department with a follow-up referral. The need for follow-up, as well as the timing and circumstances, are variable depending upon the specifics of your emergency department visit. If you don't have a primary care physician on staff, we will provide you with a referral. We always advise you to contact your personal physician following an emergency department visit to inform them of the circumstance of the visit and for follow-up with them and/or the need for any referrals to a consulting specialist. The emergency department will also refer you to a specialist when appropriate. This referral assures that you have the opportunity for follow-up care with a specialist. All of these measure are taken in an effort to provide you with optimal care, which includes your follow-up. Under all circumstances we always encourage you to contact your private physician who remains a resource for coordinating your care. When calling for follow-up care, please make the office aware that this follow-up is from your recent emergency room visit. If for any reason you are refused follow-up, please contact the [facility] Emergency Department at and asked to speak to the emergency department charge nurse. [facility] [address] [place] [id number] [id number] Follow up with primary care provider Return to ED as needed as discussed Sepsis Event Note - Evaluation Sepsis Screening Result: No Definite Risk - Focused Exam Vital Signs: Vital Signs Temp Pulse Resp BP Pulse Ox 11/30/19 21:05 97.7 F 98 18 131/80 97 11/30/19 19:47 98.5 F 95 20 137/80 98 11/30/19 18:26 98.1 F 110 H 22 H 129/79 100 Date Exam was Performed: 11/30/19 Time Exam was Performed: 21:25 - My Orders Last 24 Hours: My Active Orders 11/30/19 18:53 EKG 12 Lead [EKG Documentation Completion] [RC] STAT - Assessment/Plan Last 24 Hours: My Active Orders 11/30/19 18:53 EKG 12 Lead [EKG Documentation Completion] [RC] STAT
--- NOTE | 2019-11-30 20:29 | CT ---
Head CT Technique: Multiple axial sections were obtained through the brain. Intravenous contrast was not utilized. Comparison: No prior intracranial imaging is available. Findings: Ventricles along with basal cisterns and sulci over the convexities appear within normal limits for the patient's age. No abnormal parenchymal densities are seen. No evidence of intracranial hemorrhage. No midline shift or mass-effect is seen. Bone window settings were reviewed. No acute calvarial abnormality is seen. Mastoid sinuses are clear. Minimal retention cyst is noted within the left maxillary sinus. No acute paranasal sinus findings are seen. No acute calvarial abnormality is identified. Impression: 1. Nothing acute is seen on noncontrast head CT exam. Diagnostic code #2 This report was dictated in [place] [employer]
--- NOTE | 2019-11-30 20:30 | CR ---
Chest: 2 views of the chest were obtained. Comparison: No prior chest imaging. Heart size and mediastinum are normal. Lungs are clear with no acute parenchymal change. Old distal right clavicle fracture is noted. Bony structures show nothing acute. Impression: 1. Nothing acute is seen on 2 view chest x-ray. Diagnostic code #1 This report was dictated in [place] [employer]
[2019-11-30 21:05] VITALS: BP 131/80; PULSE 98
== END 2019-11-30 21:05 | disposition home or self-care (01) ==
LOC: MW.ED 18:15
DX: R07.89 Other chest pain (principal); R20.2 Paresthesia of skin; F17.210 Nicotine dependence, cigarettes, uncomplicated
CPT/HCPCS: 70450; 70450-26; 71046; 71046-26; 93005; 99283; 99285-25

== ENCOUNTER 2025-04-10 18:07 | Emergency (ER) | payer BC ==
[2025-04-10 19:20] LABS: BASOPHILS ABSOLUTE AUTO 0.07 K/uL (0.00-0.20); BASOPHILS PERCENT AUTO 0.8 % (0.0-1.0); EOSINOPHILS ABSOLUTE AUTO 0.26 K/uL (0.00-0.45); EOSINOPHILS PERCENT AUTO 3.1 % (0.0-6.0); IMMATURE GRAN ABSOLUTE AUTO 0.02 K/uL (0.00-0.05); IMMATURE GRAN PERCENT AUTO 0.2 % (0.0-0.4); LYMPHOCYTES ABSOLUTE AUTO 2.95 K/uL (1.00-4.80); LYMPHOCYTES PERCENT AUTO 35.6 % (24.0-44.0); MEAN PLATELET VOLUME 11.3 fL (9.4-12.4); MONOCYTES ABSOLUTE AUTO 0.62 K/uL (0.00-0.80); MONOCYTES PERCENT AUTO 7.5 % (0.0-8.0); NEUTROPHILS ABSOLUTE AUTO 4.37 K/uL (1.80-7.70); NEUTROPHILS PERCENT AUTO 52.8 % (41.0-71.0); NRBC ABSOLUTE 0.00 K/uL (0.00-0.02); NRBC PERCENT 0.0 /100WBC (0.0-0.2); PLATELET COUNT,PLT 169 K/uL (150-400); RED BLOOD CELL COUNT 5.11 M/uL (4.52-5.90); WHITE BLOOD CELL COUNT,WBC 8.29 K/uL (3.9-11.3)
[2025-04-10 19:28] VITALS: BP 135/90; PULSE 78
[2025-04-10 19:57] LABS: A/G RATIO 1.8 (0.9-1.6); ALANINE AMINOTRANSFERASE,ALT 75.0 IU/L (14-63); ASPARTATE AMNIOTRANSFERASE,AST 39.0 IU/L (15-37); BILIRUBIN TOTAL 0.4 mg/dL (0.2-1.0); BLOOD UREA NITROGEN,BUN 17.0 mg/dL (7.0-18.0); CARBON DIOXIDE,CO2 27.5 mmol/L (21.0-32.0); CHLORIDE,CL 103.0 mmol/L (98-107); CREATININE 1.2 mg/dL (0.8-1.3); EST CRCL DRUG DOSING (CG) 94.19 mL/min; GLUCOSE RANDOM 95.0 mg/dL (74-106); POTASSIUM,K 4.0 mmol/L (3.5-5.1); PRO B-TYPE NATRIUR PEPT,BNPPRO 13.0 pg/mL (0-125); PROTEIN TOTAL,TP 6.7 g/dL (6.4-8.2); SODIUM,NA 140.0 mmol/L (136-148)
[2025-04-10 20:00] LABS: ESTIMATED GFR 78.0 mL/min (>60)
== END 2025-04-10 23:00 | disposition home or self-care (01) ==
LOC: MW.ED 18:07
DX: S86.912A Strain of unspecified muscle(s) and tendon(s) at lower leg level, left leg, initial encounter (principal); I83.12 Varicose veins of left lower extremity with inflammation; Z88.8 Allergy status to other drugs, medicaments and biological substances; X58.XXXA Exposure to other specified factors, initial encounter
CPT/HCPCS: 36415; 71045; 71045-26; 80053; 83735; 83880; 84484; 85025; 85379; 93971-26-LT; 93971-LT; 99284